=== PATIENT | male | born 1980 | race Caucasian/White ===

== ENCOUNTER 2017-05-23 20:22 | Emergency (ER) | payer BC ==
[~2017-05-23] VITALS: Ht 180.3 cm; Wt 150.2 kg
[~2017-05-23 20:22] MED LIST: AMARYL4 MG PO; CLINDAMYCIN HC300 MG PO; DAILY VALUE1 EACH PO; DIOVAN HCT 11 TABLE1 PO; DIOVAN HCT 1601 EAC1 PO; FORTAMET1000 M1 PO; LEVAQUIN; PERCOCET 5/31 TABLET PO; PREDNISONE20 M1 PO
[2017-05-23] MEDS ORDERED: MOTRIN800 MG PO (22:14)
[2017-05-23 22:30] VITALS: BP 144/88
== END 2017-05-23 22:31 | disposition home or self-care (01) ==
LOC: EME 20:22
DX: H10.9 Unspecified conjunctivitis (principal); W20.8XXA Other cause of strike by thrown, projected or falling object, initial encounter; Y93.H2 Activity, gardening and landscaping; Z79.01 Long term (current) use of anticoagulants
CPT/HCPCS: 99281; 99284

== ENCOUNTER 2017-10-15 00:52 | Emergency (ER) | payer BC ==
[~2017-10-15] VITALS: Ht 182.9 cm; Wt 147.2 kg
[~2017-10-15 00:52] MED LIST changes: +MOTRIN800 MG PO
[2017-10-15 01:29] LABS: HEMATOCRIT 44.2 % (38.0-50.0); HEMOGLOBIN 15.3 G/DL (12.5-16.6); MCH 29.3 PG (29.0-34.0); MCHC 34.6 G/DL (30.0-36.0); MCV 84.5 FL (86-99); PLATELET COUNT 220 K/uL (156-360); RBC DIS.WIDTH-CV 11.9 % (11.8-14.6); RBC DIS.WIDTH-SD 36.1 % (39-53); RED BLOOD COUNT 5.23 M/uL (4.00-5.50)
[2017-10-15 01:37] LABS: CHLORIDE 104 mEq/L (99-109); POTASSIUM 4.4 mEq/L (3.7-5.4); SODIUM 140 mEq/L (136-147)
[2017-10-15 01:39] LABS: GLUCOSE 229 mg/dL (70-99)
[2017-10-15 01:42] LABS: CREATININE 0.9 mg/dL (0.6-1.3); GFR ESTIMATE (CALCULATED) > 59 mL/min/ (58.99-99999)
[2017-10-15 01:43] LABS: UREA NITROGEN (BUN) 21 mg/dL (9-23)
[2017-10-15] MEDS ORDERED: ZITHROMAX Z-PA250 MG PO (02:22)
[2017-10-15] MEDS ORDERED: FLONASE16 G1 BOTH NARES (02:22)
[2017-10-15] MEDS ORDERED: VENTOLIN HFA18 GM IH (02:22)
[2017-10-15 02:51] VITALS: BP 145/111
== END 2017-10-15 03:22 | disposition home or self-care (01) ==
LOC: EME 00:52 → EXP 00:52
DX: R05 Cough (principal); I10 Essential (primary) hypertension; E11.9 Type 2 diabetes mellitus without complications
CPT/HCPCS: 71020; 80048; 85027; 99281; 99284

== ENCOUNTER 2018-05-08 18:14 | Emergency (ER) | payer BC ==
[~2018-05-08] VITALS: Ht 182.9 cm; Wt 141.8 kg
[~2018-05-08 18:14] MED LIST changes: +FLONASE16 G1 BOTH NARES; +VENTOLIN HFA18 GM IH; +ZITHROMAX Z-PA250 MG PO
[2018-05-08 18:56] LABS: HEMOGLOBIN 13.6 G/DL (12.5-16.6); MCH 28.9 PG (29.0-34.0); MCHC 33.2 G/DL (30.0-36.0); MCV 87.2 FL (86-99); PLATELET COUNT 189 K/uL (156-360); RBC DIS.WIDTH-CV 12.6 % (11.8-14.6); RBC DIS.WIDTH-SD 40.1 % (39-53); WHITE BLOOD COUNT 14.6 K/uL (4.1-10.2)
[2018-05-08 19:05] LABS: ALBUMIN 4.2 g/dL (3.2-4.8); CHLORIDE 109 mEq/L (99-109); POTASSIUM 3.9 mEq/L (3.7-5.4); SODIUM 142 mEq/L (136-147)
[2018-05-08 19:07] LABS: GLUCOSE 149 mg/dL (70-99)
[2018-05-08 19:08] LABS: APPEARANCE CLEAR ((CLEAR)); BILIRUBIN NEGATIVE; BLOOD NEGATIVE; COLOR AMBER ((YELLOW)); GLUCOSE (STRIP) 50; KETONES 5; LEUKOCYTES NEGATIVE; NITRITE NEGATIVE; PROTEIN (STRIP) NEGATIVE; SPECIFIC GRAVITY 1.031 (1.000-1.030)
[2018-05-08 19:08] LABS: TOTAL PROTEIN 7.3 g/dL (6.4-8.3)
[2018-05-08 19:09] LABS: TOTAL BILIRUBIN 2.1 mg/dL (0.0-1.0)
[2018-05-08 19:11] LABS: ALKALINE PHOSPHATASE 184 IU/L (3-129); GFR ESTIMATE (CALCULATED) > 59 mL/min/ (58.99-99999)
[2018-05-08 19:12] LABS: UREA NITROGEN (BUN) 13 mg/dL (9-23)
[2018-05-08 19:13] LABS: AST (GOT) 87 IU/L (2-34)
[2018-05-08 19:14] LABS: ALT (GPT) 113 IU/L (3-49)
[2018-05-08] MEDS ORDERED: FLAGYL500 MG PO (20:06)
[2018-05-08] MEDS ORDERED: CIPRO500 MG PO (20:06)
[2018-05-08 21:29] VITALS: BP 128/86
== END 2018-05-08 21:34 | disposition home or self-care (01) ==
LOC: EME 18:14
PROVIDERS: Physician Assistant
DX: K57.32 Diverticulitis of large intestine without perforation or abscess without bleeding (principal); K80.20 Calculus of gallbladder without cholecystitis without obstruction; M43.06 Spondylolysis, lumbar region; M43.17 Spondylolisthesis, lumbosacral region; M51.37 Other intervertebral disc degeneration, lumbosacral region; K76.0 Fatty (change of) liver, not elsewhere classified; I10 Essential (primary) hypertension; E11.9 Type 2 diabetes mellitus without complications; Z79.84 Long term (current) use of oral hypoglycemic drugs; Z87.01 Personal history of pneumonia (recurrent)
CPT/HCPCS: 74177; 80053; 81003; 83605; 85027; 99281; 99285; J7040